=== PATIENT | female | born 1940 | race Caucasian/White ===

== ENCOUNTER 2022-11-28 14:23 | Inpatient (IN) ==
[2022-11-28] MEDS ORDERED: HEPARIN SODIUM IN D5W 25,000 UNITS/500 ML BAG IV PRN (17:57)
[2022-11-28] MEDS ORDERED: ATIVAN TAB 1 MG PO ONE (18:27)
[2022-11-28 18:29] LABS: INR 1.19 (0.8-1.3)
[2022-11-28 18:34] LABS: ALANINE AMINOTRANSFERASE 12 Units/L (12-78); ALKALINE PHOSPHATASE 145 Units/L (46-116); ASPARTATE AMINO TRANSFERASE 14 Units/L (15-37); BLOOD UREA NITROGEN 14 mg/dL (7-18); CALCIUM 7.9 mg/dL (8.5-10.1); CHLORIDE 103 mmol/L (98-107); COR CA(FOR HYPOALB) 9.5 mg/dL (8.5-10.1); CREATININE 0.57 mg/dL (0.55-1.02); SODIUM 139 mmol/L (136-145); TOTAL PROTEIN 5.1 g/dL (6.4-8.2); eGFR NON BLACK RACES > 60 (>60)
[2022-11-28 18:44] LABS: BASOPHILS % (AUTO) 0.3 % (0.2-1.0); EOSINOPHILS % (AUTO) 0.1 % (0.9-2.9); HEMATOCRIT 26.8 % (36.0-47.0); HEMOGLOBIN 7.8 g/dL (12.0-16.0); LYMPHOCYTES # (AUTO) 2.5 X10^3/uL (1.3-2.9); LYMPHOCYTES % (AUTO) 18.8 % (21.0-51.0); MEAN CORPUSCULAR HEMOGLOBIN 20.6 pg (27.0-34.0); MEAN CORPUSCULAR HGB CONC 29.2 g/dL (33.0-35.0); MEAN CORPUSCULAR VOLUME 70.7 fL (80.0-100.0); MEAN PLATELET VOLUME 7.7 fL (7.4-11.0); MONOCYTES # (AUTO) 1.5 x10^3/uL (0.3-0.8); MONOCYTES % (AUTO) 11.3 % (0.0-13.0); NEUTROPHILS # (AUTO) 9.2 x10^3/uL (2.2-4.8); NEUTROPHILS % (AUTO) 69.5 % (42.0-75.0); RED BLOOD COUNT 3.78 X10^6/uL (3.5-5.4); RED CELL DISTRIBUTION WIDTH 36.7 % (11.6-16.5); WHITE BLOOD COUNT 13.2 X10^3/uL (3.6-10.0)
[2022-11-28 18:56] LABS: PLATELET MORPHOLOGY COMMENT NORMAL (NORMAL)
[2022-11-28 18:57] LABS: ANISOCYTOSIS 3+
[2022-11-28 18:58] LABS: MICROCYTOSIS SLIGHT
[2022-11-28] MEDS ORDERED: AZULFIDINE PO SCH (21:00)
[2022-11-28] MEDS ORDERED: HEPARIN SODIUM INJ 5000 UNITS IVP ONE (21:05)
[2022-11-28] MEDS: ARICEPT TAB 10 MG PO SCH (21:11)
[2022-11-28] MEDS: NAMENDA TAB 10 MG PO SCH (21:12)
[2022-11-28] MEDS: LR 1,000 ML IV 1,000 ML IV SCH (22:29)
[2022-11-29 05:11] LABS: BASOPHILS # (AUTO) 0.1 X10^3/uL (0.0-0.1); BASOPHILS % (AUTO) 0.9 % (0.2-1.0); EOSINOPHILS # (AUTO) 0.1 x10^3/uL (0.0-0.2); HEMATOCRIT 24.5 % (36.0-47.0); HEMOGLOBIN 7.2 g/dL (12.0-16.0); LYMPHOCYTES # (AUTO) 2.2 X10^3/uL (1.3-2.9); LYMPHOCYTES % (AUTO) 24.7 % (21.0-51.0); MEAN CORPUSCULAR HEMOGLOBIN 20.7 pg (27.0-34.0); MEAN CORPUSCULAR HGB CONC 29.3 g/dL (33.0-35.0); MEAN CORPUSCULAR VOLUME 70.7 fL (80.0-100.0); MEAN PLATELET VOLUME 7.7 fL (7.4-11.0); MONOCYTES # (AUTO) 1.1 x10^3/uL (0.3-0.8); NEUTROPHILS # (AUTO) 5.5 x10^3/uL (2.2-4.8); NEUTROPHILS % (AUTO) 61.4 % (42.0-75.0); RED BLOOD COUNT 3.47 X10^6/uL (3.5-5.4); RED CELL DISTRIBUTION WIDTH 36.2 % (11.6-16.5)
[2022-11-29 05:15] LABS: INR 1.24 (0.8-1.3)
[2022-11-29 05:27] LABS: ALANINE AMINOTRANSFERASE 8 Units/L (12-78); ALBUMIN 1.6 g/dL (3.4-5.0); ALKALINE PHOSPHATASE 121 Units/L (46-116); ASPARTATE AMINO TRANSFERASE 14 Units/L (15-37); BLOOD UREA NITROGEN 11 mg/dL (7-18); CALCIUM 7.6 mg/dL (8.5-10.1); CARBON DIOXIDE 28.6 mmol/L (21-32); CHLORIDE 106 mmol/L (98-107); COR CA(FOR HYPOALB) 9.5 mg/dL (8.5-10.1); CREATININE 0.47 mg/dL (0.55-1.02); SODIUM 141 mmol/L (136-145); TOTAL PROTEIN 4.3 g/dL (6.4-8.2); eGFR NON BLACK RACES > 60 (>60)
[2022-11-29 05:45] LABS: ANISOCYTOSIS 3+; HYPOCHROMASIA 3+; MICROCYTOSIS SLIGHT; PLATELET MORPHOLOGY COMMENT NORMAL (NORMAL); TARGET CELLS PRESENT
[2022-11-29] MEDS ORDERED: HEPARIN SODIUM INJ 5000 UNITS IVP ONE (05:54)
--- NOTE | 2022-11-29 06:12 | EKG ---
Test Reason : DVT Left Leg, Pre-OP Blood Pressure : */* mmHG Vent. Rate : 93 BPM Atrial Rate : 93 BPM P-R Int : 162 ms QRS Dur : 140 ms QT Int : 412 ms P-R-T Axes : 25 -32 121 degrees QTc Int : 512 ms Normal sinus rhythm Left axis deviation Left bundle branch block Abnormal ECG No previous ECGs available Confirmed by Josh Moctezuma ([id number]) on 12/01/2022 9:10:33 AM Referred By: Confirmed By: Josh Moctezuma
--- NOTE | 2022-11-29 07:53 | RAD ---
HISTORYPRE-OP LEFT LOWER EXTREMITY DVTSTUDYCHEST, 1 VIEWCOMPARISONNoneTECHNIQUEPA or AP view of the chestFINDINGSElevated left hemidiaphragm. Mildly enlarged cardiac silhouette. Mediastinal contours appear normal. No consolidation or segmental lung collapse. No definite pleural effusion or pneumothorax.IMPRESSIONNo acute pulmonary process. Mild cardiomegaly.Electronically signed by: Homer Salcido (Nov 29, 2022 07:52:00)
[2022-11-29] MEDS: LR 1,000 ML IV 1,000 ML IV SCH (10:58)
[2022-11-29] MEDS ORDERED: VERSED ONE ×2 (13:12→13:49)
[2022-11-29] MEDS ORDERED: ANCEF VIAL 1 GRAM ONE (13:13)
[2022-11-29] MEDS ORDERED: NS 1,000 ML IV 1,000 ML ONE ×2 (13:14→14:04)
[2022-11-29] MEDS ORDERED: NS 100 ML IV 100 ML ONE (13:14)
[2022-11-29] MEDS ORDERED: ACTIVASE CATHFLO 12 MG in NS 250 ML IV 228 ML IV ONE (13:30)
[2022-11-29] MEDS ORDERED: ZOFRAN INJ 4 MG VIAL ONE (13:48)
[2022-11-29] MEDS ORDERED: PEPCID 20 MG VIAL ONE (13:48)
[2022-11-29] MEDS ORDERED: FENTANYL VIAL INJ 100 mcg ONE (13:50)
[2022-11-29] MEDS ORDERED: XYLOCAINE 2 % (PLAIN) ONE (13:53)
[2022-11-29] MEDS ORDERED: DIPRIVAN VIAL 20 ML ONE ×2 (13:53→15:15)
[2022-11-29] MEDS ORDERED: MARCAINE 0.5% ONE (14:03)
[2022-11-29] MEDS ORDERED: HEPARIN SODIUM IN D5W 100,000 UNITS/2,000 ML BAG ONE (14:04)
[2022-11-29] MEDS ORDERED: PRECEDEX INJ VIAL IVP ONE (14:19)
[2022-11-29] MEDS ORDERED: KETAMINE HCL ONE (14:19)
[2022-11-29] MEDS ORDERED: EPHEDRINE SULFATE INJ ONE (14:42)
[2022-11-29] MEDS ORDERED: ACTIVASE CATHFLO ONE ×2 (14:43→14:50)
[2022-11-29] MEDS ORDERED: HEPARIN SODIUM IN D5W 25,000 UNITS/500 ML BAG ONE (14:52)
[2022-11-29] MEDS ORDERED: HEPARIN SODIUM INJ 5000 UNITS ONE (15:56)
[2022-11-29] MEDS ORDERED: ACTIVASE CATHFLO 12 MG in NS 250 ML IV 228 ML INTRACATH ONE ×4 (17:00)
[2022-11-29] MEDS ORDERED: HEPARIN SODIUM IN D5W 25,000 UNITS/500 ML BAG INTRACATH PRN (17:00)
[2022-11-29] MEDS ORDERED: NS 500 ML IV 500 ML IV SCH (17:00)
--- NOTE | 2022-11-29 17:26 | OR.IMMED ---
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 Final Diagnosis: as above
[2022-11-29] MEDS: ATIVAN TAB 0.5 MG PO PRN (17:33)
[2022-11-29 17:36] LABS: EOSINOPHILS # (AUTO) 0.1 x10^3/uL (0.0-0.2); NEUTROPHILS # (AUTO) 7.9 x10^3/uL (2.2-4.8); RED CELL DISTRIBUTION WIDTH 36.5 % (11.6-16.5)
[2022-11-29 17:44] LABS: BASOPHILS % (AUTO) 0.3 % (0.2-1.0); HEMATOCRIT 23.8 % (36.0-47.0); LYMPHOCYTES % (AUTO) 18.7 % (21.0-51.0); MEAN CORPUSCULAR HEMOGLOBIN 20.8 pg (27.0-34.0); MEAN CORPUSCULAR VOLUME 71.7 fL (80.0-100.0); MONOCYTES # (AUTO) 0.6 x10^3/uL (0.3-0.8); MONOCYTES % (AUTO) 5.2 % (0.0-13.0); NEUTROPHILS % (AUTO) 74.8 % (42.0-75.0); RED BLOOD COUNT 3.32 X10^6/uL (3.5-5.4); WHITE BLOOD COUNT 10.6 X10^3/uL (3.6-10.0)
[2022-11-29 17:54] VITALS: BMI 20.5
[2022-11-29 18:09] LABS: HEMOGLOBIN 6.9 g/dL (12.0-16.0)
[2022-11-29 18:10] LABS: ANISOCYTOSIS 3+; PLATELET MORPHOLOGY COMMENT NORMAL (NORMAL); TARGET CELLS PRESENT
[2022-11-29 18:12] LABS: MICROCYTOSIS SLIGHT
[2022-11-29] MEDS: NAMENDA TAB 10 MG PO SCH ×2 (18:14→21:19)
[2022-11-29] MEDS: ZOLOFT PO SCH (18:14)
[2022-11-29] MEDS: AZULFIDINE PO SCH ×2 (18:14→21:20)
[2022-11-29] MEDS ORDERED: HEPARIN SODIUM IN D5W 25,000 UNITS/500 ML BAG IV PRN (18:58)
[2022-11-29] MEDS: ARICEPT TAB 10 MG PO SCH (21:18)
[2022-11-29] MEDS ORDERED: NS 500 ML IV 500 ML IV ONE (22:01)
[2022-11-29] MEDS ORDERED: TYLENOL 325 MG TAB PO ONE (23:05)
[2022-11-30] MEDS: LR 1,000 ML IV 1,000 ML IV SCH ×2 (00:38→14:12)
[2022-11-30] MEDS ORDERED: ACTIVASE CATHFLO 12 MG in NS 250 ML IV 228 ML IV ONE (01:30)
[2022-11-30] MEDS: ACTIVASE CATHFLO 12 MG in NS 250 ML IV 228 ML INTRACATH ONE ×2 (05:44→14:13)
[2022-11-30 05:51] LABS: ALANINE AMINOTRANSFERASE 13 Units/L (12-78); ALBUMIN 1.5 g/dL (3.4-5.0); ALKALINE PHOSPHATASE 119 Units/L (46-116); ASPARTATE AMINO TRANSFERASE 32 Units/L (15-37); BLOOD UREA NITROGEN 11 mg/dL (7-18); CALCIUM 7.2 mg/dL (8.5-10.1); CARBON DIOXIDE 28.9 mmol/L (21-32); CHLORIDE 108 mmol/L (98-107); COR CA(FOR HYPOALB) 9.2 mg/dL (8.5-10.1); CREATININE 0.49 mg/dL (0.55-1.02); SODIUM 142 mmol/L (136-145); eGFR NON BLACK RACES > 60 (>60)
[2022-11-30] MEDS: ATIVAN TAB 0.5 MG PO PRN (06:29)
[2022-11-30 06:47] LABS: BASOPHILS % (AUTO) 0.5 % (0.2-1.0); EOSINOPHILS # (AUTO) 0.1 x10^3/uL (0.0-0.2); EOSINOPHILS % (AUTO) 0.7 % (0.9-2.9); LYMPHOCYTES # (AUTO) 1.3 X10^3/uL (1.3-2.9); LYMPHOCYTES % (AUTO) 16.1 % (21.0-51.0); MEAN CORPUSCULAR HGB CONC 31.6 g/dL (33.0-35.0); MEAN CORPUSCULAR VOLUME 72.8 fL (80.0-100.0); MEAN PLATELET VOLUME 8.1 fL (7.4-11.0); MONOCYTES # (AUTO) 0.7 x10^3/uL (0.3-0.8); MONOCYTES % (AUTO) 8.7 % (0.0-13.0); NEUTROPHILS # (AUTO) 6.2 x10^3/uL (2.2-4.8); RED BLOOD COUNT 3.99 X10^6/uL (3.5-5.4); RED CELL DISTRIBUTION WIDTH 32.6 % (11.6-16.5); WHITE BLOOD COUNT 8.3 X10^3/uL (3.6-10.0)
[2022-11-30 06:57] LABS: HEMOGLOBIN 9.2 g/dL (12.0-16.0)
[2022-11-30 07:22] LABS: ANISOCYTOSIS 3+; MICROCYTOSIS SLIGHT; PLATELET MORPHOLOGY COMMENT NORMAL (NORMAL); POIKILOCYTOSIS SLIGHT; TARGET CELLS 1+
[2022-11-30 07:23] LABS: HYPOCHROMASIA 1+
[2022-11-30] MEDS: ZOLOFT PO SCH (10:56)
[2022-11-30] MEDS: AZULFIDINE PO SCH (10:56)
[2022-11-30] MEDS: NAMENDA TAB 10 MG PO SCH (10:57)
[2022-11-30 11:01] LABS: HEMOGLOBIN 9.2 g/dL (12.0-16.0); RED CELL DISTRIBUTION WIDTH 32.7 % (11.6-16.5)
[2022-11-30 11:04] LABS: BASOPHILS % (AUTO) 0.3 % (0.2-1.0); EOSINOPHILS # (AUTO) 0.1 x10^3/uL (0.0-0.2); EOSINOPHILS % (AUTO) 0.9 % (0.9-2.9); HEMATOCRIT 29.6 % (36.0-47.0); LYMPHOCYTES # (AUTO) 1.3 X10^3/uL (1.3-2.9); LYMPHOCYTES % (AUTO) 16.3 % (21.0-51.0); MEAN CORPUSCULAR HEMOGLOBIN 22.5 pg (27.0-34.0); MEAN CORPUSCULAR VOLUME 72.5 fL (80.0-100.0); MEAN PLATELET VOLUME 7.6 fL (7.4-11.0); MONOCYTES # (AUTO) 0.7 x10^3/uL (0.3-0.8); MONOCYTES % (AUTO) 8.7 % (0.0-13.0); NEUTROPHILS # (AUTO) 5.7 x10^3/uL (2.2-4.8); NEUTROPHILS % (AUTO) 73.8 % (42.0-75.0); RED BLOOD COUNT 4.08 X10^6/uL (3.5-5.4); WHITE BLOOD COUNT 7.8 X10^3/uL (3.6-10.0)
[2022-11-30 12:00] LABS: ANISOCYTOSIS 3+; HYPOCHROMASIA 1+; MICROCYTOSIS SLIGHT; PLATELET MORPHOLOGY COMMENT NORMAL (NORMAL); POIKILOCYTOSIS SLIGHT; SCHISTOCYTES SLIGHT; TARGET CELLS 1+
[2022-11-30] MEDS ORDERED: ELIQUIS PO ONE (13:33)
[2022-11-30] MEDS: NS 500 ML IV 500 ML IV SCH ×2 (14:12→14:51)
--- NOTE | 2022-11-30 14:30 | W.DIS.FURT ---
Summary of Discharge Discharge Summary of Date Date of Exam: 11/30/22 Admission Date Date of Admission: 11/28/22 Admission Diagnosis Hospital Course: This is an 82 year old female with past history of Deep Venous Thrombosis who has not been on anticoagulation for many years. Currently with diagnosis of dementia. Patient is not ambulatory much. Presented with acute swelling of the left upper thigh and left lower leg . Venous ultrasound performed was consistent with extensive Deep Venous Thrombosis of the left femoral vein and left popliteal vein . The left posterior tibial vein appeared to be open. The patient was admitted and placed on an intravenous Heparin drip. The next day she was taken to the operative suite. Venogram of the left leg performed via access of the left posterior tibial vein at the ankle . Guide wire was taking all the way to the left common femoral vein. Venogram showed chronic scarring of the left femoral vein. The left external iliac and left common iliac veins were chronically occluded. An EKOS Catheter was placed as far as it would go into the left common femoral vein in hopes that thrombolysis would open any accessory channel which probably closed and caused this acute change in the size of her left leg .She underwent overnight direct thrombolysis of the left leg thrombosis with TPA. She has had a diagnosis of anemia and hemoglobin dropped to below 7 grams and she was transfused two units of packed red blood cells. Post transfusion Hgb is 9.2. The EKOS catheter at her left ankle has been discontinued and she will be discharged home on her usual home mediactions plus Eliquis 5 mg po BID and Ativan 0.5 MG po q 8 hr PRN pain. She will f/u with Dr. Fontanez in 2 weeks. Vital Signs: Vital Signs (72 hours) 11/28/22 19:00 11/28/22 20:00 11/28/22 21:00 Temperature 98.6 F Pulse Rate 99 H 98 H 95 H Respiratory Rate 20 24 30 H Blood Pressure 100/53 108/54 111/56 O2 Sat by Pulse Oximetry 100 99 99 Oxygen Delivery Method Room Air Room Air Room Air Oxygen Flow Rate 11/28/22 19:00 11/28/22 19:30 11/28/22 22:00 Temperature Pulse Rate 100 H Respiratory Rate 20 Blood Pressure 108/49 O2 Sat by Pulse Oximetry 96 Oxygen Delivery Method Room Air Room Air Room Air Oxygen Flow Rate 11/28/22 23:00 11/29/22 00:00 11/29/22 01:00 Temperature 98 F Pulse Rate 103 H 95 H 92 H Respiratory Rate 26 H 20 20 Blood Pressure 107/51 114/54 114/55 O2 Sat by Pulse Oximetry 95 100 96 Oxygen Delivery Method Room Air Room Air Room Air Oxygen Flow Rate 11/29/22 02:00 11/29/22 03:00 11/29/22 04:00 Temperature 98.1 F Pulse Rate 92 H 93 H 87 Respiratory Rate 20 26 H 30 H Blood Pressure 117/56 127/72 121/55 O2 Sat by Pulse Oximetry 99 99 100 Oxygen Delivery Method Room Air Room Air Room Air Oxygen Flow Rate 11/29/22 05:00 11/29/22 06:00 11/29/22 07:00 Temperature Pulse Rate 88 87 Respiratory Rate 20 20 Blood Pressure 123/42 127/59 O2 Sat by Pulse Oximetry 99 100 Oxygen Delivery Method Room Air Room Air Room Air Oxygen Flow Rate 11/29/22 07:00 11/29/22 08:00 11/29/22 09:00 Temperature 98.9 F Pulse Rate 76 80 89 Respiratory Rate 20 18 18 Blood Pressure 103/47 112/53 127/58 O2 Sat by Pulse Oximetry 100 100 99 Oxygen Delivery Method Room Air Room Air Room Air Oxygen Flow Rate 11/29/22 10:00 11/29/22 11:00 11/29/22 12:00 Temperature 99.4 F Pulse Rate 90 84 86 Respiratory Rate 16 18 18 Blood Pressure 132/67 127/58 126/56 O2 Sat by Pulse Oximetry 100 100 100 Oxygen Delivery Method Room Air Room Air Room Air Oxygen Flow Rate 11/29/22 13:00 11/29/22 16:00 11/29/22 17:00 Temperature 97.5 F L Pulse Rate 88 85 86 Respiratory Rate 18 21 44 H Blood Pressure 113/54 111/58 99/55 O2 Sat by Pulse Oximetry 100 96 93 L Oxygen Delivery Method Room Air Room Air Room Air Oxygen Flow Rate 11/29/22 16:45 11/29/22 17:15 11/29/22 17:30 Temperature 97.5 F L Pulse Rate 86 87 87 Respiratory Rate 21 24 24 Blood Pressure 111/58 117/53 109/76 O2 Sat by Pulse Oximetry 96 99 99 Oxygen Delivery Method Room Air Room Air Room Air Oxygen Flow Rate 11/29/22 17:45 11/29/22 18:00 11/29/22 19:00 Temperature Pulse Rate 91 H 97 H Respiratory Rate 25 H 27 H Blood Pressure 132/58 139/60 O2 Sat by Pulse Oximetry 96 98 Oxygen Delivery Method Room Air Room Air Room Air Oxygen Flow Rate 11/29/22 19:00 11/29/22 20:00 11/29/22 21:00 Temperature 97.6 F Pulse Rate 109 H 114 H 117 H Respiratory Rate 21 21 25 H Blood Pressure 125/54 119/50 130/64 O2 Sat by Pulse Oximetry 96 95 91 L Oxygen Delivery Method Nasal Cannula Nasal Cannula Nasal Cannula Oxygen Flow Rate 2 2 2 11/29/22 22:00 11/29/22 23:00 11/29/22 23:29 Temperature Pulse Rate 116 H 116 H Respiratory Rate 23 20 23 Blood Pressure 117/55 116/56 O2 Sat by Pulse Oximetry 97 97 Oxygen Delivery Method Nasal Cannula Nasal Cannula Oxygen Flow Rate 2 2 11/30/22 00:00 11/30/22 00:29 11/30/22 01:00 Temperature 98.4 F Pulse Rate 104 H 92 H Respiratory Rate 19 23 20 Blood Pressure 120/52 111/54 O2 Sat by Pulse Oximetry 95 96 Oxygen Delivery Method Nasal Cannula Nasal Cannula Oxygen Flow Rate 2 2 11/30/22 02:00 11/30/22 03:00 11/30/22 04:00 Temperature 97.7 F Pulse Rate 92 H 84 86 Respiratory Rate 24 17 17 Blood Pressure 121/59 120/59 118/53 O2 Sat by Pulse Oximetry 96 93 L 98 Oxygen Delivery Method Nasal Cannula Nasal Cannula Nasal Cannula Oxygen Flow Rate 2 2 2 11/30/22 05:00 11/30/22 06:00 11/30/22 08:00 Temperature 98.7 F Pulse Rate 83 86 90 Respiratory Rate 23 17 18 Blood Pressure 139/54 145/63 126/78 O2 Sat by Pulse Oximetry 96 98 99 Oxygen Delivery Method Nasal Cannula Nasal Cannula Nasal Cannula Oxygen Flow Rate 2 2 2 11/30/22 09:00 11/30/22 07:00 Temperature Pulse Rate 88 Respiratory Rate 15 Blood Pressure 131/63 O2 Sat by Pulse Oximetry 98 Oxygen Delivery Method Nasal Cannula Room Air Oxygen Flow Rate 2 Labs: Laboratory Last Values WBC 7.8 X10^3/uL (3.6-10.0) 11/30/22 10:52 RBC 4.08 X10^6/uL (3.5-5.4) 11/30/22 10:52 Hgb 9.2 g/dL (12.0-16.0) L 11/30/22 10:52 Hct 29.6 % (36.0-47.0) L 11/30/22 10:52 MCV 72.5 fL (80.0-100.0) L 11/30/22 10:52 MCH 22.5 pg (27.0-34.0) L 11/30/22 10:52 MCHC 31.0 g/dL (33.0-35.0) L 11/30/22 10:52 RDW 32.7 % (11.6-16.5) H 11/30/22 10:52 Plt Count 280 X10^3/uL (150.0-450.0) 11/30/22 10:52 Plt Count Comment Adequate (ADEQUATE) 11/30/22 10:52 MPV 7.6 fL (7.4-11.0) 11/30/22 10:52 Neut % (Auto) 73.8 % (42.0-75.0) 11/30/22 10:52 Lymph % (Auto) 16.3 % (21.0-51.0) L 11/30/22 10:52 [place] % (Auto) 8.7 % (0.0-13.0) 11/30/22 10:52 Eos % (Auto) 0.9 % (0.9-2.9) 11/30/22 10:52 Baso % (Auto) 0.3 % (0.2-1.0) 11/30/22 10:52 Neut # (Auto) 5.7 x10^3/uL (2.2-4.8) H 11/30/22 10:52 Lymph # (Auto) 1.3 X10^3/uL (1.3-2.9) 11/30/22 10:52 [place] # (Auto) 0.7 x10^3/uL (0.3-0.8) 11/30/22 10:52 Eos # (Auto) 0.1 x10^3/uL (0.0-0.2) 11/30/22 10:52 Baso # (Auto) 0.0 X10^3/uL (0.0-0.1) 11/30/22 10:52 Absolute Nucleated RBC 0.0 /100WBC 11/30/22 10:52 Plt Morphology Comment Normal (NORMAL) 11/30/22 10:52 RBC Morphology Abnormal (NORMAL) A 11/30/22 10:52 Dimorphic RBCs 1+ 11/30/22 10:52 Hypochromasia 1+ A 11/30/22 10:52 Poikilocytosis Slight A 11/30/22 10:52 Anisocytosis 3+ A 11/30/22 10:52 Microcytosis Slight A 11/30/22 10:52 Target Cells 1+ A 11/30/22 10:52 Schistocytes Slight A 11/30/22 10:52 PT 15.7 SECONDS (11.8-14.3) 11/29/22 12:12 INR Target Range - 11/29/22 12:12 INR 1.30 (0.8-1.3) 11/29/22 12:12 APTT 56.0 SECONDS (22.9-36.5) H 11/30/22 10:52 PTT Comment - 11/30/22 10:52 Fibrinogen 197 mg/dL (239-489) L 11/30/22 10:52 Sodium 142 mmol/L (136-145) 11/30/22 05:07 Corrected Sodium TNP 11/30/22 05:07 Potassium 3.7 mmol/L (3.5-5.1) 11/30/22 05:07 Chloride 108 mmol/L (98-107) H 11/30/22 05:07 Carbon Dioxide 28.9 mmol/L (21-32) 11/30/22 05:07 BUN 11 mg/dL (7-18) 11/30/22 05:07 Creatinine 0.49 mg/dL (0.55-1.02) L 11/30/22 05:07 Est GFR (MDRD) Af Amer > 60 (>60) 11/30/22 05:07 Est GFR (MDRD) Non-Af > 60 (>60) 11/30/22 05:07 Glucose 95 mg/dL (65-99) 11/30/22 05:07 Calcium 7.2 mg/dL (8.5-10.1) L 11/30/22 05:07 Corrected Calcium 9.2 mg/dL (8.5-10.1) 11/30/22 05:07 Total Bilirubin 1.60 mg/dL (0.2-1.0) H 11/30/22 05:07 AST 32 Units/L (15-37) 11/30/22 05:07 ALT 13 Units/L (12-78) 11/30/22 05:07 Alkaline Phosphatase 119 Units/L (46-116) H 11/30/22 05:07 Total Protein 4.0 g/dL (6.4-8.2) L 11/30/22 05:07 Albumin 1.5 g/dL (3.4-5.0) L 11/30/22 05:07 Globulin 2.5 g/dL (2.5-4.5) 11/30/22 05:07 Albumin/Globulin Ratio 0.6 Ratio (1.1-2.1) L 11/30/22 05:07 Blood Type B POSITIVE 11/29/22 19:00 Antibody Screen Negative 11/29/22 19:00 Crossmatch See Detail 11/29/22 19:00 Reason For Visit: LEFT LOWER EXTREMITY DVT Discharge Date Discharge Date: 11/30/22 Discharge Diagnosis All Active Problems (Updated 11/28/22 @ 20:19 by Jacek Fontanez) Deep venous embolism and thrombosis of left lower extremity (Acute) Hypertension (Acute) Dementia (Acute) Plan of Treatment: Continue with present treatment and follow up plan. Pt is to keep follow up appointment as instructed and take medications as ordered. Discharge Medications Discharge Medications: No Known Allergies Allergy (Verified 11/28/22 18:23) CONTINUE taking the following medications donepezil 23 mg tablet 23 mg PO QPM 11/29/22 [History] memantine 10 mg tablet 10 mg PO BID 11/29/22 [History] sertraline 25 mg tablet 25 mg PO QDAY 11/29/22 [History] sulfasalazine 500 mg tablet 500 mg PO TID 11/29/22 [History] New Prescriptions apixaban 5 mg tablet (Eliquis) 5 mg PO BID #60 tabs 11/30/22 [Rx] lorazepam 0.5 mg tablet (Ativan) 0.5 mg PO TID PRN agitation #20 tabs 11/30/22 [Rx] Discharge Disposition Assessment: See hospital course as above Discharge Plan Discharge Plan Hospital Course: This is an 82 year old female with past history of Deep Venous Thrombosis who has not been on anticoagulation for many years. Currently with diagnosis of dementia. Patient is not ambulatory much. Presented with acute swelling of the left upper thigh and left lower leg . Venous ultrasound performed was consistent with extensive Deep Venous Thrombosis of the left femoral vein and left popliteal vein . The left posterior tibial vein appeared to be open. The patient was admitted and placed on an intravenous Heparin drip. The next day she was taken to the operative suite. Venogram of the left leg performed via access of the left posterior tibial vein at the ankle . Guide wire was taking all the way to the left common femoral vein. Venogram showed chronic scarring of the left femoral vein. The left external iliac and left common iliac veins w ere chronically occluded. An EKOS Catheter was placed as far as it would go into the left common femoral vein in hopes that thrombolysis would open any accessory channel which probably closed and caused this acute change in the size of her left leg .She underwent overnight direct thrombolysis of the left leg thrombosis with TPA. She has had a diagnosis of anemia and hemoglobin dropped to below 7 grams and she was transfused two units of packed red blood cells. Post transfusion Hgb is 9.2. The EKOS catheter at her left ankle has been discontinued and she will be discharged home on her usual home mediactions plus Eliquis 5 mg po BID and Ativan 0.5 MG po q 8 hr PRN pain. She will f/u with Dr. Fontanez in 2 weeks. Patient Disposition: 01 HOME, SELF-CARE Condition: Stable Health Concerns: Post Hospitalization: new medications and changes needed to prevent readmission or further decline. Pt educated and given instructions on all concerns. Care Plan Goals: Problem: Pain/Alteration in Comfort Goal: Improve/ Resolve Pain; Achieve Pain Tolerance Instructions: Take pain medications as prescribed. Contact your primary care provider if your pain is unrelieved or worsens. Follow up with primary care provider as directed. Plan of Treatment: Continue with present treatment and follow up plan. Pt is to keep follow up appointment as instructed and take medications as ordered. Assessment: See hospital course as above Prescription drug monitoring program results: PDMP reviewed and no concerns identified Prescriptions: New lorazepam [Ativan] 0.5 mg tablet 0.5 mg PO TID MDD 3 PRN (Reason: agitation) Qty: 20 0RF Eliquis 5 mg tablet 5 mg PO BID Qty: 60 6RF Continued sulfasalazine 500 mg tablet 500 mg PO TID sertraline 25 mg tablet 25 mg PO QDAY memantine 10 mg tablet 10 mg PO BID donepezil 23 mg tablet 23 mg PO QPM Follow ups/Referrals Follow ups/Referrals: Jacek Fontanez [STAFF PHYSICIAN] - 1 WEEK (Call office on Saturday and schedule a 1 week follow up ) Instructions Instructions: Catheter-Directed Thrombolysis, Catheter-Directed Thrombolysis, Care After, Deep Vein Thrombosis
[2022-11-30 14:44] VITALS: BP 116/54
--- NOTE | 2022-12-01 21:40 | DR.UPDATE ---
H&P UPDATE Review Yes Any changes to H&P?: No
--- NOTE | 2022-12-02 01:24 | DR.OPNOTE ---
OP NOTE Pre-Op Diagnosis: Left leg deep venous thrombosis Post-Op Diagnosis: Left femoral scarring &old DVT. Complete occlusion of left ilac vein Procedure Date Date Of Procedure: 11/29/22 Procedure: PROCEDURE : LEFT LEG AND LEFT ILIAC VEIN VENOGRAM, ANGIOJET THOMBECTOMY OF THE LEFT POPLITEAL AND FEMORAL VEIN, PLACEMENT OF EKOS THROMBOLYTIC CATHETER NARRATIVE: Patients taking to the operative suite and placed in the Supine position. The entire left leg was prepped and draped in sterile fashion. Patient was given intravenous sedation supervised by myself. Time out for the procedure obtained . Ultrasound used to identify the left posterior tibial vein and the skin overlying it infiltrated with 0.5% Marcaine . Multiple attempts were made to puncture the left posterior tibial vein and this was difficult but obtained and 0.035 inch guide wire taken all the way to the groin. Patient given 5000 units of IV heparin. Micro sheath exchanged for a 7 Fr vascular sheath . Venogram carried showing significant scarring of the popliteal and superficial femoral vein on the right. [place] catheter placed over the guide wire all the way to the groin and venogram here showed a complete occlusion of the external iliac and common iliac veins. [place] catheter removed and Angio Jet device placed over the guide wire and Angio Jet peripheral thrombectomy of the entire popliteal and superficial femoral vein carried out all the way to where it was occluded. This was done and the Angio Jet device removed and over the guide wire we placed the catheter for the EKOS and then removed the guide wire and placed the inner core. This was connected to the ultrasonic device . Patient bolused with 3 mg of intravenous TPA .TPA started at one mg per hour. Coolant started at 30 cc's an hour. Heparin drip started through the catheter at 400 units per hour. Dressing applied and patient taken back to the ICU. Will plan EKOS with infusion of TPA 1 mg per hour for 24 hours. Type of Anesthesia: Local (0.5% Marcaine) Anesthesia Comment: plus MAC Findings: Chronic DVT left femoral vein, complete occlusion of the left common and external iliac veins Type of Fluids Used:: Lactated Ringers Total Amount of Fluid Infused:: 800 cc Urine output: 600 cc EBL: < 50 cc Complications:: none Needle/Sponge Count:: correct Disposition/Condition: Pt. tolerated procedure without difficulty. Extubated in the OR and taken to PACU in stable condition.
== END 2022-11-30 15:20 | disposition home or self-care (01) | DRG 254 ==
LOC: ICU 17:15
PROVIDERS: ADMIT Surgery; ATTEND Surgery
DX: I82.412 Acute embolism and thrombosis of left femoral vein; I10 Essential (primary) hypertension; I82.432 Acute embolism and thrombosis of left popliteal vein; Z79.01 Long term (current) use of anticoagulants